=== PATIENT | female | born 1955 | race Caucasian/White ===

== ENCOUNTER 2023-01-11 11:00 | Outpatient (RCR) | payer BC, MEDICARE, OTHER, SELFPAY ==
--- NOTE | 2022-11-23 10:50 | HP.PTEVAL ---
Patient's Visit Information Visit Information Visit Information: LUCY SEE is a 66 year old F referred to Physical Therapy by Dr. Benjamin Vigil MD with a diagnosis of B knee OA. Date of Evaluation: 11/23/22 Physical Therapist: Dirk Garcia, DPT, OCS, CSCS Visit Plan Frequency: 2-3x /Week Duration: 4-6 Weeks Plan: 2-3x/week for 4-6 weeks... Spend first three visits teaching pool ex of LE strength, core strength, knee ROM in pool to do while she is in [place] and [place] then [place] to f/u when she gets back. Subjective Subjective: Will have surgery 01/25 for L TKA but both need done. Longstanding pain B knees and feel stiff and limited mobility. L knee will catch and it is hard to move at times. pain ranges up to 8/10 which happened after a fall due to knee giving out, typically going up steps. has also tripped over a cord at the [facility]. Does not lift off the ground as easy as R. Sleep is not typically a problem, some nights a little painful since fall. Retired teaching. Hobbies: enjoys gardening, walking and riding bike and taking care of great nieces. Can only go about a mile but very painful and stiff. Worried she might fall. wants knee brace for gardening. Uses a walking stick in the garden. Pain L knee: Pain Intensity (Out of 10): 0 Pain Intensity Range: 0 and 8 Objective Objective: Walks into PT I with minor L antalgia. I gait and trasnfers, stiffness present L knee. Patella minimal movement B. steps are reciprocal up with much UE pulling, descending using R only with rails. L knee 0-105 AROM and R knee is 0-120, limited by pain and stiffness. Ankle aROM to 0 DF, quads min tight B, gastroc min tight B. Hip aROM WFL B. reflexes 1/3 B patella and achilles Sensation LE WNL to gross lgiht touch. Strength 3+ R quad, 4- L quad, pain on R. HS 4- B. Hip abd and ext 3 B, flexion 3+ B, ankle strength 4 B. Balance/Special Test Scores Lower Extremity Functional Score: 41 Goals Goal 1:: I appropriate pool ex for trip to [place] for LE strength, core strength, and work to I, also teach L knee flexion ROM in pool. Goal Time Frame: 4-6 Weeks Goal 2:: Pt feel 50% better in overall L knee pain to 4/10 at worst and manageable Goal Time Frame: 4-6 Weeks Goal 3:: I in gait and exercises for TKA Goal Time Frame: 4-6 Weeks Rehabilitation Potential Physical Therapy Diagnosis: B knee OA Rehabilitation Potential: Good Anticipated Interventions Patient/Client Instruction: Educate patient on: Condition and Plan of Care For the Purpose of:: To decrease pain, To increase ROM, To improve nutrient delivery to tissue, To improve muscle performance and motor function, To increase tolerance to activity/condition/position and To improve gait and locomotor functions Therapeutic Exercise to Include: Strength training, Postural training, Flexibilty training, Passive ROM and Active ROM For the Purpose of:: To decrease pain, To increase ROM, To improve nutrient delivery to tissue, To improve muscle performance and motor function, To increase tolerance to activity/condition/position, To improve ability of physical actions for home/community/work/leisure and To improve gait and locomotor functions Text: Thank you for the opportunity to evaluate your patient. For Medicare and Medicare HMO plans, please review the plan of care and approve it. It will need to be FAXED BACK to us at [phone] for Medicare purposes. For Medicare only, by signing this I certify the plan of care. Please let me know if there are questions or concerns regarding this plan of care. Physician Signature: Date:
--- NOTE | 2023-01-11 11:26 | HP.PTDCSUM ---
Discharge Summary D/C summary: It has been my pleasure to treat LUCY SEE referred by Dr. Benjamin Vigil MD, with the diagnosis of B knee OA for a total of 4 visit(s). Discharge Date: 01/11/23 Please see the following information for a summary of their discharge status. Subjective Subjective: Was on vacation. Worked out while on [place] but stopped pool access 3 weeks ago. The pool really helped. Will have L TKA in two weeks and then R one will be in 2 months. Has been relying on cane. Knees buckle now and then. Time to have them repaired. Pain currently 6/10 B knees daily and time to have them fixed, avoids steps. Pain L knee: Pain Intensity (Out of 10): 6 Overall Improvement % Improvement: 0 Objective Objective/Function: Extreme valgus B knees, Still antalgia L. subjective not improving, will have surgery soon. 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 Goal Progress: Goal Met Goal 2:: Pt feel 50% better in overall L knee pain to 4/10 at worst and manageable Goal Progress: Not Progressing Goal 3:: I in gait and exercises for TKA Goal Progress: Goal Met Plan Plan: d/c D/C Information d/c sentence: If there are questions or concerns regarding this patient's physical therapy, please feel free to call me at [phone]. Thank you for the referral of this patient. Sincerely, Dirk Garcia, DPT, OCS, CSCS Balance/Gait/Functional tests Balance/Special Test Scores Lower Extremity Functional Score: 35 Improvement % Improvement: 0
== END 2023-01-11 19:00 | disposition home or self-care (01) ==
LOC: PT 11:00
PROVIDERS: PCP Internal Medicine; Referring Provider Specialist; Visit Provider Specialist
DX: M17.0 Bilateral primary osteoarthritis of knee (principal)
CPT/HCPCS: 97113; 97161; 97530

== ENCOUNTER → 2024-11-13 | Outpatient (CLI) | payer MEDICARE, OTHER, SELFPAY ==
--- NOTE | 2024-11-13 16:00 | MRI_ITS ---
PROCEDURE: LOWER EXT/NO JT/W/O 11/13/2024 REASON FOR EXAM: SOFT TISSUE MASS PLANTAR FIBROMA TECHNIQUE: Procedure Code: [id number] Modality: MR Procedure: LOWER EXT/NO JT/W/O T1, T2, stir, multiplanar and multisequence images of the right foot were obtained without IV contrast administration. COMPARISON: None FINDINGS: Bone Marrow: There is a 0.6 x 0.3 cm developing osteochondral defect in the distal navicular articular surface with no free fragment. There is no occult fracture. Effusion: There is no discrete effusion . Soft Tissues: There is an intermediate to low T1, intermediate to high STIR, intermediate high T2 signal lobulated lesion of the palpable abnormality in the medial plantar subcutaneous tissues, measuring 4.7 by 2.2 by 1.4 cm, with its lateral margin contiguous with the plantar fascia. There is an adjacent lesion with similar signal discretely within the plantar fascia measuring 0.8 by 0.5 by 1.1 cm. Ligaments and Tendons: Flexor and extensor tendons appear intact. MRI/Lower Ext/No Jt/w/o IMPRESSION: There is a 0.6 x 0.3 cm developing osteochondral defect in the distal navicular articular surface with no free fragment. There is an intermediate to low T1, intermediate to high STIR, intermediate hig h T2 signal lobulated lesion of the palpable abnormality in the medial plantar subcutaneous tissues, measuring 4.7 by 2.2 by 1.4 cm, with its lateral margin contiguous with the plantar fascia. This lesion appears more complex than would typically rece noar a diagnosis of plantar fibromatosis, with sarcoma not excluded. Postcontrast images are recommended for further characte rization. Biopsy should be considered. There is an adjacent lesion with similar signal discretely within the plantar f ascia measuring 0.8 by 0.5 by 1.1 cm. Reading Location: [facility]
--- NOTE | 2024-11-13 16:24 | MRI_ITS ---
PROCEDURE: LOWER EXT/NO JT/W/O 11/13/2024 REASON FOR EXAM: SOFT TISSUE MASS PLANTAR FIBROMA TECHNIQUE: Procedure Code: [id number] Modality: MR Procedure: LOWER EXT/NO JT/W/O T1, T2, stir, multiplanar and multisequence images of the left foot were obtained without IV contrast administration. COMPARISON: COMPARISON : None FINDINGS: Bone Marrow: There is a 0.5 x 0.3 cm subcortical cyst or developing osteochondral defect in the distal 1st metatarsal. There is no occult fracture Effusion: There is no significant effusion Soft Tissues: There is a intermediate to low T1, intermediate T2, intermediate STIR signal lesion in the distal aspect of the medial plantar fascia measuring 0.92 x 2.1 by 1.4 cm with benign features. There is a similar signal lesion in the medial plantar fascia in the midfoot measuring 2.1 x 1.0 by 1.3 cm which extends to the subcutaneous tissues. Ligaments and Tendons: Flexor and extensor tendons appear intact. MRI/Lower Ext/No Jt/w/o IMPRESSION: There is a 0.5 x 0.3 cm subcortical cyst or developing osteochondral defect in the distal 1st metatarsal. There is a intermediate to low T1, intermediate T2, intermediate STIR signal le keith in the distal aspect of the medial plantar fascia measuring 0.92 x 2.1 by 1.4 cm with benign features. There is a similar signal lesion in the medial plantar fascia in the midfoot me asuring 2.1 x 1.0 by 1.3 cm which extends to the subcutaneous tissues. Reading Location: [facility]
== END | disposition home or self-care (01) ==
LOC: OPMRI 15:47
PROVIDERS: PCP Internal Medicine; Referring Provider Podiatrist; Visit Provider Podiatrist
DX: M72.2 Plantar fascial fibromatosis (principal)
CPT/HCPCS: 73718